=== PATIENT | male | born 1945 | race Two or more races ===

== ENCOUNTER 2025-05-01 09:36 | Outpatient (RCR) | payer MEDICARE, SELFPAY ==
--- NOTE | 2025-05-01 10:08 | PTNOTE_ITS ---
PT OP Initial Eval Patient Information Outpatient Physical Therapy Treatment Date: 05/01/25 Visit Reasons: R29.898 Medical Diagnosis: R29.898 Start of Care: 05/01/25 Date of Onset: 6 months ago Smoking Status Smoking Status: Never smoker Initial Assessment Subjective: Pt is 79 yr old male brought in by son in law for W/C evaluation. Pt reports B LE weakness and difficulty walking. He needs hand support on the walker and doesn't have leg strength. The R foot loses feeling and he catches it. Pt reports he fell last week. He has cardiac issues and gets SOB after walking about 15'. PMH: HTN, DM, cardiac stents, lumbar stenosis, high cholesterol Pt goal: to get a power W/C for better QOL. Objective: Please see W/C evaluation hard copy Assessment: Pt presents with B LE weakness and B drop foot which limits WB tolerance and ambulatory distance. Pt would benefit from a power W/C or scooter to improve community mobility and independent function since his dtr and son in law have to push him around in the manual W/C. He can transfer from the W/C to bed independently with reliance on hands and has the cognitive ability to control a power mobility device. Short Term and Custodial Goals Eval and D/C Treatment Plan Eval and D/C Frequency and Duration: W/C eval only Certification Dates: 05/01/25 to 05/06/25 Procedure Charges OP PT Eval Mod Complex 30 minutes: Yes
== END 2025-05-12 23:59 | disposition home or self-care (01) ==
LOC: CPTX 09:36
PROVIDERS: PCP Internal Medicine; Referring Provider Internal Medicine; Visit Provider Internal Medicine
DX: R29.898 Other symptoms and signs involving the musculoskeletal system (principal); R53.1 Weakness; R26.2 Difficulty in walking, not elsewhere classified; M21.372 Foot drop, left foot; M21.371 Foot drop, right foot; I10 Essential (primary) hypertension; E11.9 Type 2 diabetes mellitus without complications
CPT/HCPCS: 97162